=== PATIENT | female | born 1940 | race Asian ===

== ENCOUNTER → 2017-04-06 | Outpatient (CLI) | payer OTHER, BC ==
[~2017-04-06] MED LIST: NORCO 5-325 TA1 EACH PO; ULTRAM 50MG TAB50 MG PO
== END ==
LOC: MRI 08:10
DX: M25.411 Effusion, right shoulder (principal); M65.811 Other synovitis and tenosynovitis, right shoulder

== ENCOUNTER 2017-10-10 05:35 | Inpatient (IN) | payer OTHER, BC ==
[2017-10-01 10:40] LABS: HEMATOCRIT 38.7 % (37.0-47.0); HEMOGLOBIN 13.3 gm/dL (12.0-15.0); MCH 30.4 pg (26.0-34.0); MCHC 34.4 g/dL (28.0-37.0); MCV 88.4 fL (80.0-100.0); RBC 4.38 mil/uL (4.20-5.00); RDW 12.6 % (10.5-14.5); URINE BILIRUBIN NEGATIVE (Negative); URINE BLOOD TRACE (Negative); URINE CLARITY CLEAR; URINE COLOR YELLOW; URINE GLUCOSE-RANDOM* NEGATIVE (Negative); URINE KETONES NEGATIVE (Negative); URINE LEUKOCYTES-REFLEX NEGATIVE (Negative); URINE NITRITE-REFLEX NEGATIVE (Negative); URINE PROTEIN (DIPSTICK) NEGATIVE (Negative); URINE SPECIFIC GRAVITY <= 1.005 (1.005-1.035); URINE UROBILINOGEN 0.2 E.U./dl (0.2-1.0); WBC 5.6 thou/uL (4.0-11.0)
[2017-10-01 10:51] LABS: CALCIUM 9.4 mg/dL (8.5-10.1); CREATININE 0.5 mg/dL (0.6-1.0); POTASSIUM 4.2 mmol/L (3.5-5.1)
[2017-10-01 10:52] LABS: PROTIME 10.3 Seconds (9.3-11.4)
[~2017-10-10] VITALS: Ht 134.6 cm; Wt 36.7 kg
--- NOTE | ~2017-10-10 | O ---
[facility] [place] [place] [address] OPERATIVE REPORT Name: YANETH MCFADDEN Room #: 402-P ADM IN M.R.#: [id number] Admission: 10/17/17 Attend Phys: Herson Schulz Discharge: Date of : 42 Report #: [id number] THIS REPORT FOR: //name// CC: FAM unknown Herson Neal DATE OF SERVICE: 10/17/2017 PREOPERATIVE DIAGNOSES: Right shoulder rotator cuff tear arthropathy, biceps tendinopathy. POSTOPERATIVE DIAGNOSES: Right shoulder rotator cuff tear arthropathy, biceps tendinopathy. PROCEDURE PERFORMED: Right total shoulder arthroplasty with open biceps tenodesis. SURGEON: Herson Neal M.D. CHEF PASSENGER VESSEL: None. ANESTHESIA: General per endotracheal tube by Dr. Judd. FLUIDS: 600 mL crystalloid. ESTIMATED BLOOD LOSS: Approximately 75 mL. IMPLANTS UTILIZED: [employer] Unite stem size 8 with a size 1 centered MCGEE coated modular epiphysis, +3 polyethylene with a standard Metaglene and a 38 eccentric glenosphere, cemented humeral component. DESCRIPTION OF PROCEDURE: After proper identification of the patient and operative site in the preoperative holding area, the operative site was signed by myself. Prophylactic antibiotics were given. The patient elected to consider a postoperative interscalene block, but did not want this performed preoperatively. She had the risks, benefits, alternatives and potential complications of this reviewed with Dr. Judd. The patient was brought back to the operative suite after induction of satisfactory general anesthesia. She was carefully positioned in the beach chair with head of the bed elevated to approximately 40 degrees. The patient's head and neck were very carefully positioned and we matched the position. She felt comfortable and before she had anesthesia induced, the right shoulder was sterilely prepped and draped in the usual manner. Final skin draping was with Ioban. A Kontest limb positioning system was utilized throughout the entire procedure. An anterior deltopectoral approach was planned. Skin was [address] [address] OPERATIVE REPORT Name: YANETH MCFADDEN Suzan Room #: 402-P ADM IN M.R.#: [id number] Admission: 10/17/17 Attend Phys: Herson Schulz Discharge: Date of : 42 Report #: [id number] incised sharply. Full-thickness skin flaps were developed. Cephalic vein was identified and retracted laterally. It was protected throughout the entire procedure. The deltoid was carefully retracted with a Franca deltoid retractor. There was evidence of a massive rotator cuff tear. A small portion of the inferior subscapularis was still noted. This was released and tagged and the long head of the biceps tendon was tenodesed to the undersurface of the pectoralis major tendon. Biceps tendinopathy was present. At this point, the patient had full-thickness bone loss on the more superior aspect of the humeral head and evidence of her prior lateral clavicle fracture was noted with some mobility appreciated here. The acromion was otherwise intact. A small portion of the superior humerus was removed with an oscillating saw to aid an entry for the hand reaming canal reamers. She was reamed up to a size 8 stem, which matched her preoperative templating. Humeral epiphysis was cut in approximately 20 degrees of retroversion using the appropriate cutting guide. Due to her small size, careful positioning of the cutting guide was performed to ensure that this was not resected or had too generous resection. The superior protection plate was applied. The shoulder was then reduced and a lamina residential substance abuse counselor was utilized to distract the joint. The labrum and any remaining superior biceps tendon were removed circumferentially. Inferior capsule was released. The anterior capsule was released off the remaining subscapularis, but the remaining subscapularis was of poor enough quality that this did not appear to have sufficient quality to repair at the end of the procedure. Axillary nerve was identified and protected throughout the entire procedure. There was excellent exposure of the glenoid and using the Metaglene guide for the guidepin, pin was inserted and its position was verified in multiple planes as well as by palpation and then the step drill was utilized. This was contained. The patient had extremely small glenoid and the Metaglene in essence took up a majority of her glenoid, so there was really minimal ability to shift this inferiorly. The Metaglene was impacted into position, had good fit initially. Locking screws were placed superiorly and inferiorly with nonlocking screws in the anterior and posterior plane. All screws had good purchase and they were sequentially tightened. Locking screws were then locked and there was excellent stability of the glenoid. Proximal humerus was reamed with an acetabular reamer to accommodate the epiphysis and the glenosphere was reduced on to the Metaglene. Guidewire was inserted. Screw was rotated counterclockwise until a click was noted and this was felt to be seated. This was then tightened and impacted a total of 3 additional times to ensure that this was fully seated. Glenosphere was rotated inferiorly prior to the tightening and had excellent position and an eccentric 38-mm glenoid was chosen. At this point, a trial implant was placed and a +3 poly provided excellent fit and stability, although she did not have enough proximal fixation or diaphyseal fixation to warrant a press-fit component. Therefore, a cemented component was utilized. A cement restrictor was placed. The canal was irrigated. Two bags of cement were prepared on the back table. This was then injected with a cement gun and the stem was positioned in 10 degrees of retroversion with the epiphysis [facility] [address] [place] [address] OPERATIVE REPORT Name: YANETH MCFADDEN Room #: 402-P ADM IN M.R.#: [id number] Admission: 10/17/17 Attend Phys: Herson Schulz Discharge: Date of : 42 Report #: [id number] relative to the stem. This had excellent purchase. After the insertion, there was a very small crack noted within the anterior humerus. Her epiphyseal/metaphyseal region of the bone was quite thin. This did not extend distally any significant distance and to minimize any further potential risk of more distal spread of this, a Dall-Miles cable was carefully placed. Care was taken to not over tighten this due to the nature of the cortices. The cable was then crimped and cut. There was excellent stability of the implant. A +3 polyethylene was the final polyethylene chosen and this was reduced and stable throughout a full arc of motion. There was no over tensioning of the deltoid or conjoined tendon and she had excellent stability. Wound was thoroughly irrigated with normal saline. Deltopectoral interval was closed with 0 Vicryl after 1 gram of vancomycin powder was utilized, half of this deep half in more superficial; 2-0 Vicryl in the subcutaneous tissues, followed by running 4-0 Monocryl. This was sealed with Dermabond. Sterile dressing was applied after 20 mL of 0.2% Naropin was injected around the skin incision to aid in postoperative pain control. Sling will be utilized postoperatively. She was extubated, awakened and transferred to the recovery room in stable condition. <ELECTRONICALLY SIGNED> By: Herson Neal MD 10/18/17 1225 1001 1033 Herson Neal MD /nt
[2017-10-17] VITALS (8 sets, daily range): BP systolic 96–144; BP diastolic 46–75
[2017-10-18] VITALS (8 sets, daily range): BP systolic 88–123; BP diastolic 50–78
[2017-10-18 06:09] LABS: HEMATOCRIT 33.7 % (37.0-47.0); HEMOGLOBIN 11.4 gm/dL (12.0-15.0)
[2017-10-18 06:16] LABS: POTASSIUM 3.4 mmol/L (3.5-5.1)
[2017-10-19 04:00] LABS: ABSOLUTE NEUTROPHILS 5.4 thou/uL (1.4-8.2); BASOPHILS 0.4 % (0.0-2.0); EOSINOPHILS 0.2 % (0.0-3.0); HEMOGLOBIN 9.8 gm/dL (12.0-15.0); LYMPHOCYTES 13.4 % (24.0-44.0); MCV 88.6 fL (80.0-100.0); MONOCYTES 11.6 % (1.0-8.0); PLATELET COUNT 217 thou/uL (150-400); POLYS 74.4 % (36.0-66.0); RBC 3.16 mil/uL (4.20-5.00); RDW 12.4 % (10.5-14.5); WBC 7.3 thou/uL (4.0-11.0)
[2017-10-19 04:11] LABS: CALCIUM 8.6 mg/dL (8.5-10.1); CREATININE 0.6 mg/dL (0.6-1.0); MAGNESIUM 2.1 mg/dL (1.8-2.4); POTASSIUM 3.4 mmol/L (3.5-5.1)
[2017-10-19 04:54] VITALS: BP 121/58
[2017-10-19 08:00] VITALS: BP 142/79
== END 2017-10-19 11:10 | disposition home or self-care (01) | DRG 483 ==
LOC: PRE 05:35 → 4N 10-17 05:52 → TBA 10-17 05:52 → PRE 10-17 10:23 → 4N 10-17 11:43
PROVIDERS: Nurse Practitioner; Orthopaedic Surgery Sports Medicine
PROC: 0LS30ZZ Reposition Right Upper Arm Tendon, Open Approach (ICD-10-PCS; principal; 2017-10-17)
PROC: 0RRJ0JZ Replacement of Right Shoulder Joint with Synthetic Substitute, Open Approach (ICD-10-PCS; principal; 2017-10-17)
DX: M12.811 Other specific arthropathies, not elsewhere classified, right shoulder (principal); E87.1 Hypo-osmolality and hyponatremia; M75.101 Unspecified rotator cuff tear or rupture of right shoulder, not specified as traumatic; E87.6 Hypokalemia; T40.2X5A Adverse effect of other opioids, initial encounter; Z90.49 Acquired absence of other specified parts of digestive tract; Y92.89 Other specified places as the place of occurrence of the external cause
CPT/HCPCS: 10790; 50010; 50101; 50172; 50386; 50417; 50697; 50733; 50935; 51130; 51225; 51771; 51930; 52138; 53000; 53078; 53371; 54118; 55430; 56524; 56525; 56526; 56530; 57095; 62110; 62900; 70005

== ENCOUNTER 2020-07-07 18:51 | Inpatient (IN) | payer OTHER, BC ==
[~2020-07-07] VITALS: Ht 147.3 cm; Wt 40.4 kg
[2020-07-07 18:54] VITALS: BP 146/73
[2020-07-07 20:45] LABS: URINE BILIRUBIN NEGATIVE (Negative); URINE BLOOD TRACE (Negative); URINE CLARITY CLEAR; URINE COLOR YELLOW; URINE GLUCOSE-RANDOM* NEGATIVE (Negative); URINE KETONES NEGATIVE (Negative); URINE LEUKOCYTES-REFLEX NEGATIVE (Negative); URINE NITRITE-REFLEX NEGATIVE (Negative); URINE PROTEIN (DIPSTICK) NEGATIVE (Negative); URINE UROBILINOGEN 0.2 E.U./dl (0.2-1.0)
[2020-07-07 21:29] LABS: ABSOLUTE NEUTROPHILS 7.3 thou/uL (1.4-8.2); BASOPHILS 0.3 % (0.0-2.0); EOSINOPHILS 0.7 % (0.0-3.0); HEMOGLOBIN 13.3 gm/dL (12.0-15.0); LYMPHOCYTES 8.5 % (24.0-44.0); MCH 30.2 pg (26.0-34.0); MCHC 34.2 g/dL (28.0-37.0); MCV 88.4 fL (80.0-100.0); MONOCYTES 10.6 % (1.0-8.0); PLATELET COUNT 409 thou/uL (150-400); POLYS 79.9 % (36.0-66.0); RBC 4.41 mil/uL (4.20-5.00); RDW 12.1 % (10.5-14.5); WBC 9.1 thou/uL (4.0-11.0)
[2020-07-07 21:39] LABS: CALCIUM 9.5 mg/dL (8.5-10.1); CREATININE 0.6 mg/dL (0.6-1.0); TOTAL BILIRUBIN 0.6 mg/dL (0.2-1.0); TOTAL PROTEIN 6.6 g/dL (6.4-8.2)
[2020-07-07 21:40] LABS: POTASSIUM 2.4 mmol/L (3.5-5.1)
[2020-07-08] VITALS (7 sets, daily range): BP systolic 117–144; BP diastolic 64–78
--- NOTE | 2020-07-08 03:42 | NUR ---
ATTEMPTED TO CALL REPORT AT THIS TIME. I WAS TOLD THAT NURSE WILL HAVE TO CALL ME BACK.
--- NOTE | 2020-07-08 06:00 | NUR ---
PT ARRIVED FROM THE ED AT AROUND 0430 HRS,. PT ALERT AND ORIENTED. PT IS IN SO MUCH PAIN AND DOES NOT WANT ANY PAIN MEDS. PT DID NOT WANT ALL THE EXTRA LINEN REMOVED FROM UNDER HER OR FOR HER TO BE REPOSITIONED DUE TO THE PAIN. SHE IS AFEBRILE. PATEL TO D/D WITH DARK YELLOW URINE.SCDS IN PLACE. IVF INFUSING. ORDERS TO REPLACE K+ THIS AM NOTED.PT OBSERVED TO BE LAYING IN BED IN PAIN BUT SAYS SHE IS OKAY.CALL LIGHT WITHIN REACH.
[2020-07-08 06:08] LABS: INR 1.1; PROTIME 10.9 Seconds (9.3-11.4)
[2020-07-08 06:11] LABS: CALCIUM 9.4 mg/dL (8.5-10.1); CREATININE 0.6 mg/dL (0.6-1.0)
[2020-07-08 06:14] LABS: POTASSIUM 2.8 mmol/L (3.5-5.1)
--- NOTE | 2020-07-08 07:28 | EKG ---
[address] [place] [address] ELECTROCARDIOGRAM REPORT Name: YANETH MCFADDEN Room #: 444-P ADM IN M.R.#: [id number] Admission: 07/07/20 Attend Phys: Frank Oneill MD Discharge: Date of : 42 Report #: [id number] [facility] ED Test Date: 2020-07-07 Test Time: 20:02:54 Pat Name: YANETH MCFADDEN Department: Room: 444 Gender: F Gold Miner: ivet : 1940 Requested By: Cosmo Mixon Order Number: [id number] MD: Bruno Pate Measurements Intervals [place] Rate: 83 P: 46 ND: 166 QRS: 51 QRSD: 78 T: 57 QT: 355 QTc: 418 Interpretive Statements Sinus rhythm Probable left atrial enlargement Low voltage, extremity leads Compared to ECG 05/21/2014 09:26:34 Low QRS voltage now present Electronically Signed On 07-08-2020 7:28:37 VOICE OVER ARTIST by Bruno Pate [email or web address] <ELECTRONICALLY SIGNED> By: Bruno Pate MD, [facility] 07/08/20 0728 01 01 Bruno Pate MD, FACC /EPI
--- NOTE | 2020-07-08 09:41 | NUR ---
ASSESSMENT: CM REVIEWED CHART AND SPOKE WITH PT. PT WAS ADMITTED WITH A LEFT HIP FX AND IS TO GET POSSIBLE LEFT HIP HEMIARTHROPLASTY TODAY IF SCHEDULE ALLOWS. PT REPORTS SHE IS FROM HOME WHERE SHE LIVES IN A HOUSE ALONE. PT REPORTS THAT SHE HAS TWO STEPS TO ENTER WITH NO HANDRAIL AND NO STEPS SHE HAS TO USE ONCE INSIDE. PT REPORTS BEING FULLY INDEPENDENT WITH ADLS AND AMBULATION. PT REPORTS SHE ORDERS ALOT OF THINGS THROUGH [employer] SO SHE DOES NOT HAVE TO GET OUT OF THE HOUSE. PT DENIES HAVING HH IN THE PAST OR BEING TO A SNF. PT REPORTS THAT SHE DOES NOT HAVE ANY CHILDREN. CM DISCUSSED ROLE. [facility] CONSULT IS IN AND SHE IS HOPING SHE WILL BE ABLE TO GO TO ACUTE REHAB. CM WILL CONTINUE TO FOLLOW TO ASSIST NEEDED.
--- NOTE | 2020-07-08 14:15 | NUR ---
Assumed care of pt at 0700. Pt a&ox4. Refuses to take pain medicine for majority of the day. Pt agreeable to take pain medicine. IV pain med administered. Calvert catheter in place. IVF infusing. IV potassium infusing. Pt will have surgery this afternoon. Call light within reach. Fall precautions in place. Will continue to monitor.
--- NOTE | 2020-07-09 03:22 | NUR ---
ASSUMED PT CARE AT 1900.PT C/O PAIN ON HER HIP BUT REF TO TAKE PAIN MED.PT'S POTASSIUM RECHECKED AFTER BEING REPLACED,UP TO 3.9.HS SNACK GIVEN PER PT'S REQUEST.PT SLEEPING ON HER BED AT THIS TIME.CALL LIGHT WITHIN REACH.
[2020-07-09 04:39] VITALS: BP 120/65
[2020-07-09 07:20] VITALS: BP 131/73
[2020-07-09 08:49] LABS: HEMATOCRIT 33.5 % (37.0-47.0); MCHC 33.5 g/dL (28.0-37.0); MCV 89.5 fL (80.0-100.0); RBC 3.75 mil/uL (4.20-5.00); RDW 12.2 % (10.5-14.5); WBC 13.7 thou/uL (4.0-11.0)
[2020-07-09 08:50] LABS: HEMOGLOBIN 11.2 gm/dL (12.0-15.0)
[2020-07-09 09:00] LABS: CALCIUM 8.7 mg/dL (8.5-10.1); CREATININE 0.6 mg/dL (0.6-1.0); MAGNESIUM 1.9 mg/dL (1.8-2.4)
[2020-07-09 09:06] LABS: POTASSIUM 2.8 mmol/L (3.5-5.1)
--- NOTE | 2020-07-09 09:17 | NUR ---
Assess due to borderline low BMI of 18.6. Admit with hip fracture s/p surgical intervention 07/08. Visit this am, tolerated light breakfast. States appetite good at home and always maintains body wt 85-90 lb. Follows vegetarian diet but will eat eggs, cheese and yogurt. Dislikes all nutrition supplement drinks. Assisted ordering lunch for today. Low nutrition risk
--- NOTE | 2020-07-09 09:25 | HC ---
[facility] [place] [address] CONSULTATION Name: YANETH MCFADDEN Room #: 444-P ADM IN M.R.#: [id number] Admission: 07/07/20 Attend Phys: John Hall MD Discharge: Date of : 42 Report #: [id number] THIS REPORT FOR: cc: FAM - No family physician/PCP FAM - No family physician/PCP Chris Herrera MD ~ HISTORY OF PRESENT ILLNESS: This 80-year-old female is quite small and quite frail, but apparently is still moderately active and lives independently. She fell at home injuring the left hip about 3 days ago. She was assisted and tried to manage at home, but with ongoing hip pain. She was then brought to [facility] for x-rays confirm a left femoral neck fracture with displacement. At the time of my evaluation, she is alert and oriented and seems to understand the situation well. She states she has no other significant medical problems and has been safe and independent up to this point. She denies any other areas of injury or discomfort. On examination, she is quite small and frail. She seems to have good alignment of the neck and back without any discomfort in those areas. The upper extremities are also quite frail and small, but she seems to have satisfactory movement at both shoulders without discomfort. The elbow, wrist and hand appear to be normal bilaterally. The pelvis appears to be stable and well aligned. The right lower extremity reveals satisfactory alignment of the hip with good range of motion and only minor crepitus and minimal discomfort. She also has some crepitus and pain at the right knee, but this is mild. The left lower extremity is shortened and rotated consistent with a displaced and unstable proximal femur fracture. X-rays of the pelvis confirm moderate diffuse osteopenia and a complex fracture of the left femoral neck with displacement and significant bony resorption. The right hip demonstrates no fracture, but there is moderate degenerative change. IMPRESSION: Complex comminuted displaced fracture of left femoral neck. I have discussed this with the patient, reviewing treatment options. I think a cemented hemiarthroplasty is most appropriate given this situation. She agrees and would like to proceed with surgery. She has been cleared medically and I think is a safe candidate for surgery. We were planning to proceed with surgery for left hip hemiarthroplasty today on 07/08/2020. <ELECTRONICALLY SIGNED> By: Chris Herrera MD 07/09/20 0925 1715 1846 Chris Herrera MD /nt
--- NOTE | 2020-07-09 09:25 | O ---
[facility] [place] [address] OPERATIVE REPORT Name: YANETH MCFADDEN Room #: 444-P ADM IN M.R.#: [id number] Admission: 07/07/20 Attend Phys: John Hall MD Discharge: Date of : 42 Report #: [id number] THIS REPORT FOR: cc: FAM - No family physician/PCP FAM - No family physician/PCP Chris Herrera MD ~ DATE OF SERVICE: 07/08/2020 PREOPERATIVE DIAGNOSIS: Unstable fracture, left hip femoral neck. POSTOPERATIVE DIAGNOSIS: Unstable fracture, left hip femoral neck. PROCEDURE: Left proximal femoral hemiarthroplasty. SURGEON: Chris Herrera MD INDICATIONS: This very tiny and frail 80-year-old female fell several days ago at home and has experienced hip pain and inability to ambulate since then. X-rays now reveal an unstable displaced femoral neck fracture. 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 No other fractures were identified. We have discussed treatment options and elected to go ahead with cemented hemiarthroplasty. DESCRIPTION OF PROCEDURE: The patient was taken to the operating room where she was placed under general anesthesia. Prophylactic intravenous antibiotics were administered. She was turned to the right lateral decubitus position. The left hip, thigh and leg were meticulously prepped and draped. A slightly curving posterolateral skin incision was made centered over the greater trochanter. This was carried through fascia and gluteus to expose the posterior aspect of the hip joint. The capsule and short external rotators were rather atrophic, but were taken down and preserved. The hip was found to be fractured at the femoral neck with indeterminate age as there was significant bony resorption and comminution. The head was removed and measured at only 40 mm in diameter. The neck was trimmed down to an appropriate level. The acetabulum was inspected. There is mild degenerative change, but I felt it was most reasonable to do a hemiarthroplasty on this patient. The canal was prepared with the Crouch and Nephew broaches and the very smallest cemented stem seemed to be most appropriate. This is a size 9 cement stem. A trial reduction was performed and the hip seemed nicely reduced when using the +0 neck length and a size 40 mm diameter head. The trial component was removed. A cement restrictor was placed in the canal. The permanent components were brought up on to the field. These include a Crouch and Nephew size 9 cement Synergy stem. The size 40 head is smaller than the smallest unipolar head and so I selected a 40 mm modular femoral head using a cobalt chrome style, a +0 neck length sleeve was selected. Methylmethacrylate cement was mixed and injected into the canal. The permanent [facility] [address] [place] [address] OPERATIVE REPORT Name: YANETH MCFADDEN Room #: 444-P [facility] IN M.R.#: [id number] Admission: 07/07/20 Attend Phys: John Hall MD Discharge: Date of : 42 Report #: [id number] stem was then inserted, placing this in about 20 degrees of anteversion. Gentle pressure was applied as excess cement was removed from around its margin. The 40 mm modular head was then impacted on to the Monroe taper. It seated nicely. The hip was very carefully reduced, making sure to avoid any torque or movement with regard to the stem. The hip was then held in neutral position as the cement fully hardened. All excess cement was removed from around the margin, the hip seemed to be stable and well and in good position. Leg length and stability were assessed and felt to be satisfactory. The capsule and short external rotators were repaired back to the greater trochanter using #1 Tevdek sutures, passed through small drill holes in the greater trochanter. The fascia was then closed with multiple #1 Vicryl sutures. The subcutaneous tissues were closed with 0 Monocryl. Skin was closed with skin gideon. Sterile dressing was applied. The patient was awakened and returned to recovery room in good condition. <ELECTRONICALLY SIGNED> By: Chris Herrera MD 07/09/20 0925 1711 1729 Chris Herrera MD /paige
--- NOTE | 2020-07-09 11:49 | NUR ---
Assumed care of pt at 0700. Pt a&ox4. C/o pain but refused pain medicine. Worked with physical therapy. Dressing c/d/i. Critical potassium 2.8 this am. Provider notified. New orders noted. Calvert catheter in place. IVF infusing. Fall precautions in place. Will continue to monitor.
--- NOTE | 2020-07-09 15:25 | NUR ---
ON-GOING ASSESSMENT: PT IS POD1 AND CONTINUING TO WORK WITH PT/OT. [facility] IS EVALUATING BUT NEEDS TO SEE PATIENT WORKING WITH THERAPIES PRIOR TO DETERMINING IF THEY CAN ACCEPT PATIENT. PLANS ARE FOR [facility] VS SNF. CM WILL CONTINUE TO FOLLOW TO ASSIST NEEDED.
[2020-07-09 15:36] VITALS: BP 126/83
[2020-07-09 20:24] VITALS: BP 125/69
--- NOTE | 2020-07-10 04:25 | NUR ---
RECIEVED CARE OF THIS PATIENT AT 1900. PATIENT ALERT AND ORIENTED X4. HAS NANDO DRESSING ON L HIP. DRESSING D/I. PATIENT C/O PAIN BUT REFUSES ANY KIND OF PAIN MED, SAYS IT MAKES HER DIZZY AND SHE MIGHT FALL. PATEL PATENT. IV PATENT IN RFA. SLEPT MOST OF NIGHT.
[2020-07-10 07:30] VITALS: BP 132/75
[2020-07-10 16:30] VITALS: BP 101/62
--- NOTE | 2020-07-11 05:35 | NUR ---
RECIEVED CARE OF THIS PATIENT AT 1900. PATIENT ALERT AND ORIENTED X4. PATEL PATENT. SCD.S ON NATACHA HIP. DRESSING ON L HIP D/I. C/O PAIN, IV MED GIVEN. PATIENT STATES DID NOT HELP. SLEPT LITTLE THIS SHIFT.
[2020-07-11 07:23] VITALS: BP 118/61
[2020-07-11 17:10] VITALS: BP 128/69
[2020-07-11 19:10] VITALS: BP 104/48
--- NOTE | 2020-07-12 04:00 | NUR ---
PT WITH NANDO DRSG INTACT TO LEFT HIP. HIP IS TENDER. PT FEELS THE PAIN IS ALOT WORSE AFTER SHE WORKRD WITH PT AND TRANSFERRED BACK TO BED. FENTANYL GIVEN X 2.DENIES NAUSEA AND VOMITING.AFEBRILE. IVF INFUSING. CALL LIGHT WITHIN REACH.
[2020-07-12 04:14] VITALS: BP 136/66
[2020-07-12 09:48] LABS: MCH 31.3 pg (26.0-34.0); MCHC 34.5 g/dL (28.0-37.0); MCV 90.8 fL (80.0-100.0); RBC 3.52 mil/uL (4.20-5.00); RDW 12.3 % (10.5-14.5); WBC 9.4 thou/uL (4.0-11.0)
[2020-07-12 10:00] LABS: CALCIUM 8.6 mg/dL (8.5-10.1); CREATININE 0.4 mg/dL (0.6-1.0); MAGNESIUM 1.8 mg/dL (1.8-2.4); POTASSIUM 4.2 mmol/L (3.5-5.1)
--- NOTE | 2020-07-12 14:44 | NUR ---
INFORMATION RECEIVED FROM JAVA ENGINEER THAT PATIENT IS NOW VERY INTERESTED IN COMING TO [facility] FOR REHAB. LIAISON SPOKE WITH PATIENT SHARING A BROCHURE WITH INFORMATION/EXPECTATIONS OF [facility] REHAB. PATIENT EXPRESSED STRONG DESIRE TO COME TO REHAB. PATIENT INSTRUCTED TO MAKE SURE THAT SHE PARTICIPATES IN REHAB THIS AFTERNOON AND TOMORROW MORNING AND THEN REHAB WOULD BE ABLE TO GIVE DETERMINATION TO HER IF SHE WOULD BE ABLE TO ADMIT/WAS APPROPRIATE FOR ACUTE REHAB SERVICES. JAVA ENGINEER INFORMED OF ABOVE.
--- NOTE | 2020-07-12 15:36 | NUR ---
CM MET WITH PT AT BEDSIDE AND INDICATED THAT CARE TEAM WERE RECOMMENDING SKILLED POST ACUTE CARE STAY. PT SAID YES UPSTAIRS. CM INDICATED THAT NO [facility] SAID PT WASN'T A GOOD CANDIDATE AND OFFERED SNF LIST. PT INDICATED SHE WANTED TO GO TO [facility]. CM SPOKE WITH LIAISON AND SHE MET WITH PT AND DISCUSSED THAT PT NEEDS TO PARTICIAPTE WITH THERAPY AND SHOW SHE WILL WORK WITH THERAPY IF BROUGHT TO [facility]. PT AND OT TO SEE AGAIN TOMORROW. CM FOLLOWING.
[2020-07-12 17:00] VITALS: BP 123/67
[2020-07-12 19:00] VITALS: BP 125/51
--- NOTE | 2020-07-13 01:30 | NUR ---
ASSUMED PT CARE AT SHIFT CHANGE. PT IS A&OX4. PT HAS A LEFT AC THAT WAS LEAKING AT THE BEGINING OF THE SHIFT. CELINE (DAY RN) PLACED AND IV IN THE PT'S LEFT FOREARM. IV IS PATENT. VISIBLY I CAN SEE THAT THE PT IS IN PAIN BUT SHE REFUSES ANY PAIN MEDICATION. PT STATES THAT SHE WANTS THE SCD'S TURNED ON AND THAT WILL HELP HER GET TO SLEEP. PT HAS DRIED BLOOD ON THE DRESSING ON HER LEFT HIP. PT REQUESTS TO HAVE HER LIDOCAINE PATCH PUT ON 07/13/20 AT 0700 HOURLY ROUNDING DONE. WILL CONTINUE TO MONITOR.
[2020-07-13 07:15] VITALS: BP 117/57
[2020-07-13] MEDS ORDERED: ENOXAPARIN40 MG/0.1 SUBQ (13:30)
[2020-07-13] MEDS ORDERED: TYLENOL325 MG PO (13:30)
[2020-07-13] MEDS ORDERED: ULTRAM 50MG TAB50 MG PO (13:30)
[2020-07-13] MEDS ORDERED: PEPCID20 MG PO (13:30)
[2020-07-13] MEDS ORDERED: LIDOPATCH1 EACH TRANSDERM (13:30)
--- NOTE | 2020-07-13 16:04 | NUR ---
CARE TEAM INDICATED THAT PT IS MEDICALLY STABLE TO DISCHARGE THIS DAY. [facility] INDICATED THAT THEY ARE ABLE TO ACCEPT PT FOR ADMISSION. PT IS TO DC TO [facility] ACUTE INPATIENT REHAB THIS DAY. REPORT TO BE CALLED TO . NO OTHER CM INTERVENTION INDICATED. CASE CLOSED.
[2020-07-13 16:35] VITALS: BP 105/59
--- NOTE | 2020-07-13 16:45 | NUR ---
Central supply called for Hans pino, was told there was only size that was too big for the patient. Patient still has the orozco catheter on although the surgery date was July 08; according to the shift report this morning, the reason that the patient kept the orozco catheter was " immobile". The [facility] who talked to the staff for general view of the patient asked the staff to send the patient to with the orozco catheter on and they would contact the doctor to figure out if the patient would keep the catheter or not.
== END 2020-07-13 18:31 | DRG 522 ==
LOC: ER 18:51 → 4S 20:50 → EROBS 20:50 → 4S 07-08 04:21
PROVIDERS: Emergency Medicine; Nurse Practitioner Family; ADMIT Internal Medicine; ATTEND Internal Medicine
PROC: 0SRS019 Replacement of Left Hip Joint, Femoral Surface with Metal Synthetic Substitute, Cemented, Open Approach (ICD-10-PCS; principal; 2020-07-07)
DX: S72.012A Unspecified intracapsular fracture of left femur, initial encounter for closed fracture (principal); D62 Acute posthemorrhagic anemia; R53.81 Other malaise; E87.6 Hypokalemia; M81.0 Age-related osteoporosis without current pathological fracture; E53.8 Deficiency of other specified B group vitamins; E55.9 Vitamin D deficiency, unspecified; W18.39XA Other fall on same level, initial encounter; Z20.822 Contact with and (suspected) exposure to COVID-19; Z90.49 Acquired absence of other specified parts of digestive tract; Y93.89 Activity, other specified; Y92.89 Other specified places as the place of occurrence of the external cause; Y99.8 Other external cause status
CPT/HCPCS: 10195; 50010; 50101; 50382; 50414; 51057; 51130; 51225; 51412; 53000; 53369; 56521; 56525; 56530; 57103; 62110; 62900; 70005

== ENCOUNTER 2020-07-13 12:03 | Inpatient (IN) | payer OTHER, BC ==
[~2020-07-13] VITALS: Ht 147.3 cm; Wt 38.9 kg
[2020-07-13] MEDS ORDERED: ENOXAPARIN40 MG/0.1 SUBQ (13:30)
[2020-07-13] MEDS ORDERED: PEPCID20 MG PO (13:30)
[2020-07-13] MEDS ORDERED: LIDOPATCH1 EACH TRANSDERM (13:30)
[2020-07-13] MEDS ORDERED: ULTRAM 50MG TAB50 MG PO (13:30)
[2020-07-13] MEDS ORDERED: TYLENOL325 MG PO (13:30)
[2020-07-13 18:51] VITALS: BP 103/54
[2020-07-13 20:25] VITALS: BP 101/52
--- NOTE | 2020-07-14 01:20 | NUR ---
PT ARRIVED TO ROOM 515 AROUND 1830 LAST EVENING. PT ALERT AND ORIENTED X 4. LEFT HIP NANDO DRESSING INTACT WITH MOD AMT DRIED GREEN DRAINAGE NOTED. PATEL PATENT DRAINING CLEAR YELLOW URINE. PT DENIES PAIN OR DISCOMFORT. HS SCHEDULED TYLENOL GIVEN. PT REFUSED LOVENOX AT HS. POINTED TO SCD'S AND STATED THEY WERE MOVING HER LEGS SO SHE DIDN'T NEED LOVENOX. EDUCATION PROVIDED. PT REFUSING TO BE TURNED. NO SKIN ISSUES NOTED. PT ORIENTED TO ROOM AND USE OF CALL LIGHT. UNIT HANDBOOK GIVEN TO PT. BED ALARM ON FOR SAFETY. PT APPEARS TO BE SLEEPING ON HOURLY ROUNDS.
[2020-07-14 07:02] LABS: HEMATOCRIT 28.1 % (37.0-47.0); HEMOGLOBIN 9.4 gm/dL (12.0-15.0); MCH 30.3 pg (26.0-34.0); MCHC 33.6 g/dL (28.0-37.0); MCV 90.2 fL (80.0-100.0); RBC 3.11 mil/uL (4.20-5.00); RDW 12.4 % (10.5-14.5)
[2020-07-14 07:10] LABS: CALCIUM 8.6 mg/dL (8.5-10.1); CREATININE 0.4 mg/dL (0.6-1.0); POTASSIUM 3.6 mmol/L (3.5-5.1)
[2020-07-14 07:20] VITALS: BP 119/71
--- NOTE | 2020-07-14 11:59 | NUR ---
Nutrition: RD received consult stating poor intake. Pt admitted to rehab unit S/P surgery for left femoral neck fracture post fall. Has low BMI 17.9. UBW ranges from 85-90#. Current 85#. Follows vegetarian diet but will eat eggs, cheese, yogurt, etc. Pt orders meals. Food preferences entered. Will not drink supplements but eats 100% of meals and noted pt ordered eggs and cottage cheese at lunch for protein sources. On B12 and vitamin D supplementation. Low nutrition risk.
--- NOTE | 2020-07-14 12:14 | NUR ---
Case opened to follow for dc planning. The pt has been admitted to acute inpt rehab. During our visit this morning she is A&Ox4 and cm role/team conf/dc planning introduced. The pt reports that she is a and lives alone in her family home that was built and designed by her . She does not have any children and no extended family locally. She has a close friend/neighbor of many years, Reina Emery that is her emergency contact and support person. She states that Reina can take care of anything she needs or handle any emergencies. She has two steps to enter her ranch style home and she lives on the main level (including laundry);therefore can avoid the basement. She said the basement only gets used if she has visitors from out of town. She has no dme and will need a FWW at [facility]. She is open to HH f/u at [facility] with no preference. Pcp is Dr. Mari Umanzor but she has not seen her recently. She reports being healthy and independent with no real medical issues. She is a vegitarian and the cosmetic sales consultant has visited with her. She is motivated and wanting to get stronger to return home. Team conf next Thursday 07/20 to determine ELOS.
--- NOTE | 2020-07-14 14:47 | NUR ---
ASSUMED CARE AT 0700. PATIENT IS ALERT AND ORIENTED X4. PATIENT MARTINEZ'S, TRIAL JUDGE ARE EQUAL. LUNGS ARE CLEAR. ABD IS SOFT WITH BSX4. PATIENT HAS PATEL TO DD, DRAINING DANK COLORED URINE. UP IN BED FOR MEALS. PICCO DRESSING INTACT WITH PUMP ON. PATIENT HAS BILATERAL S.L. IN BOTH ARMS. FALL AND SAFETY PROTOCOLS IN PLACE. C/O LEFT HIP PAIN. MEDICATED WITH SCED PAIN MED. PATIENT CONTINUES TO PROGRESS TOWARDS D/C GOALS. WILL CONTINUE TO MONITER.
[2020-07-14 20:00] VITALS: BP 118/60
--- NOTE | 2020-07-15 02:30 | NUR ---
ASSUMED CARE APPROX 1900 EVENING 07/14. PT LYING IN BED WITH HEAD OF BED ELEVATED DOZING OFF AND ON. PATEL TO DD WITH YELLOW URINE TO BAG. PT TOOK HS MEDS WITH APPLESAUCE TOLERATING WELL. BED ALARM ON AND CALL LIGHT IN REACH. WILL CONTINUE TO MONITOR.
--- NOTE | 2020-07-15 09:49 | NUR ---
Dr. Umanzor's nurse,Genoveva called back and they can follow her for HH at [facility]. She has not been seen by them since 2017 so she will need an appt setup upon dc from Rehab. They would also like an updated faxed and dc summary faxed to them at [facility] as well. Dc data processing systems project planner to fax updated today.
--- NOTE | 2020-07-15 15:00 | NUR ---
ASSUMED CARE AT 0700. SLEPT FAIRLY WELL. ALERT AND ORIENTATED. PAIN IS STABLE AND CONTROLLED WITH REBECCA TYLENOL. APPETITE FAIRLY GOOD. HAD COUPLE OF BM TODAY. IV LINE REMOVED. PATEL IN PLACE, ORDERS RECEIVED TO BLADDER TRAINING AND POSSIBLY PATEL REMOVED TOMORROW. HAS BEEN REFUSING LOVENOX, EDUCATION GIVEN AND PT VERBALIZES UNDERSTANDING AND PREFER TO USE THE SCD INSTEAD. L HIP DRESSING INTACT WITH SS OLD DRAINAGE. PARTICIPATED WITH THERAPY. CONT TO MONITOR.
[2020-07-15 20:43] VITALS: BP 118/71
--- NOTE | 2020-07-16 02:15 | NUR ---
PAIN MANAGED WELL WITH SCHEDULED TYLENOL AND LIDODERM PATCH TO LEFT THIGH ON DURING DAY. REFUSED LOVENOX, PREFERS SCDs TO PREVENT DVT. COVERING FACE IN ORDER TO DARKEN FOR SLEEP. TOLERATING AND KEEPING TRACK OF PATEL CLAMPING, KNOWS THAT IT MIGHT COME OUT SOON THIS MORNING. PLEASANT
[2020-07-16 07:51] VITALS: BP 108/62
--- NOTE | 2020-07-16 15:46 | NUR ---
ASSUMED CARE AT 0700. SLEPT FAIRLY WELL. ALERT AND ORIENTATED. PT REFUSED TO SIT AND EAT HER MEALS UNTIL HER CATHETER IS REMOVED. BLADDER TRAINING DONE WITH CLAMPING Q4 HR YESTERDAY. PATEL REMOVED TODAY AT 1015, PT ABLE TO VOID AFTER AN HOUR LATER. MEDICATED WITH REBECCA TYELENOL WITH MANAGEABLE CONTROL. APPETITE FAIRLY GOOD. HAD A BM TODAY. PARTICIPATING IN THERAPY. CONT TO MONITOR.
[2020-07-16 20:17] VITALS: BP 121/59
--- NOTE | 2020-07-17 02:18 | NUR ---
PT ASSESSMENT COMPLETED AND VSS. MEDS GIVEN ORDERED AND WELL TOLERATED. PRN PAIN MEDICATION GIVEN FOR LEFT HIP PAIN. DSG INTACT WITH DRY DRAINAGE. SURGERY CONTACTED DURING THE DAY REGARDING NANDO DRSG PUMP TURNING OFF AND THAT THERE WAS DRY DRAINAGE ON THE DRESSING. TOLD DAY RN TO KEEP DRESSING ON AND JUST CUT THE BOX OFF. COMPLETED BY DAY RN. DSG ON LEFT HIP REMAINS INTACT AT THIS TIME. PT VOIDING LARGE AMOUNT SINCE APTEL OUT TODAY. INC OF URINE ONE TIME WHEN PT WAS GETTING UP TO THE BSC. BED CHANGE COMPLETED. AND PT WAS ABLE TO VOID A LARGE AMOUNT ON THE BSC AFTER HER INC EPISODE. FALL PRECAUTIONS IN PLACE. SLEEPING WELL AT THIS TIME. WILL CONTINUE TO MONITOR FREQUENTLY.
[2020-07-17 08:00] VITALS: BP 90/49
--- NOTE | 2020-07-17 12:39 | NUR ---
ASSUMED CARE OF PT. AT 0700 TODAY. PT. IN BED, WOULD NOT GET UP "UNTIL SHE HAD MY PAIN MEDICATION". 0900 MEDICATIONS GIVEN. LIDOCAINE PATCH APPLIED TO LEFT LEG. AFTER THERAPY SHE RETURNED TO BED. SHE WOULD NOT GET UP FOR LUNCH. SHE STATED, "I JUST WON'T GET UP THEN!" SHE REFUSED TO WORK WITH AFTERNOON THERAPIES STATING SHE WAS IN TOO MUCH PAIN. PAIN MEDICATION OFFERED TO HER. SHE REFUSED STATING IT MAKES HER DIZZY AND SHE DOES NOT WANT ANY.
[2020-07-17 20:00] VITALS: BP 108/56
--- NOTE | 2020-07-18 04:15 | NUR ---
assumed care approx 1900 evening 07/17. pt sleeping in bed at change of shift. pt refused Lovenox at hs. pt up to bathroom to void several times this night. pt appears to be sleeping soundly with hourly rounding checks. bed alarm on and call light in reach. will continue to monitor.
[2020-07-18 07:28] VITALS: BP 115/70
--- NOTE | 2020-07-18 13:34 | NUR ---
ASSUMED CARE AT 0700. SLEPT FAIRLY WELL. PAIN IS MANAGEABLE AND STABLE WITH TYLENOL. PT HAS BEEN OFFERED TRAMADOL FOR BETTER CONTROL KELBY WITH MOVEMENT. PT SIT FOR A SHORT WHILE IN THE WC ONLY TO EAT HER MEALS AND PREFERS TO LIE BACK AFTER SHE IS DONE. SHE MOANS WITH MOVEMENT AND STILL DOES NOT WANT HER TRAMADOL SHE SAYS HER PAIN IS STABLE WITH REST. APPETITE IS FAIR. HAD A BM TODAY. PARTICIPATED WITH PHY THERAPY TODAY. WILL CONT TO MONITOR.
[2020-07-18 19:56] VITALS: BP 121/72
--- NOTE | 2020-07-19 02:40 | NUR ---
assumed care approx 1900 evening 07/18. pt lying in bed sleeping at change of shift. pt refused hs meds. pt up to bsc to void with 1 assist. bed alarm on and call light in reach. will continue to monitor.
[2020-07-19 08:41] VITALS: BP 107/59
--- NOTE | 2020-07-19 15:00 | NUR ---
ASSUMED CARE AT 0700. SLEPT FAIRLY WELL. PAIN IS STABLE WITH TYLENOL BUT DID REPORT PAIN IS MORE WITH ACTIVITY. XRAY DONE TO L HIP, NO ACUTE FINDINGS. PT OFFERED TO TAKE TRAMADOL WITH INC PAIN BUT PT WANTS TO STAY WITH TYLENOL FOR NOW. SURGICAL DRESSING INTACT WITH OLD DRAINAGE WITH CORD CUT. APPETITE FAIR. HAD A BM TODAY. PARTICIPATES WITH THERAPIES MUCH TOLERATED. CONTINENCE WITH BLADDER AND BOWELS. TOLERATES HER MEDS, TAKES HER TYELENOL WITH YOGURT.
[2020-07-19 19:30] VITALS: BP 130/62
--- NOTE | 2020-07-20 04:51 | NUR ---
RECIEVED CARE OF THIS PATIENT AT 1900. PATIENT ALERT AND ORIENTED X4. GETS UP TO BSC WITH ASSIST OF ONE, GAIT BELT AND WALKER. DRESSING ON L HIP IS INTACT. HAS SOME DRY DRAINAGE. SCD'S ON. DENIES PAIN. SLEPT MOST OF THE NIGHT.
[2020-07-20 08:05] VITALS: BP 123/79
--- NOTE | 2020-07-20 12:39 | NUR ---
team meeting, reccomendation: de 07/28 with fww and home health ( nursing, pt and ot). has support from friend. she plans on haveing food delivered to home. will need transport home and help getting into home at de on 07/28.
--- NOTE | 2020-07-20 16:30 | NUR ---
ASSUMED CARE AT 0700 THIS MORNING. SHE IS PLEASANT AND COOPERATIVE WITH STAFF. SHE HAS BEEN WORKING WITH THERAPIES TODAY. SHE IS ALERT AND ORIENTED TIMES 4. SHE ANSWERS ALL QUESTIONS APPROPRIATELY. SHE MAKES FEW REQUESTS OF STAFF. SHE TOOK ALL HER MEDICATIONS IN [facility]OGURT.
[2020-07-20 19:55] VITALS: BP 122/64
--- NOTE | 2020-07-21 02:14 | NUR ---
ASSESSED AT START OF SHIFT. PT UP WITH SBA TO THE BSC. TYLENOL GIVEN FOR LEFT HIP PAIN. PT TAKES MEDS WITH YOGURT ONE AT A TIME. ON RA. NANDO DRESSING ON LEFT HIP NOTED. FALL PREC IN PLACE AND PT CALLS APPROPRIATELY FOR NEEDS. WILL CONT TO MONITOR.
[2020-07-21 06:03] LABS: ALBUMIN 2.4 g/dL (3.4-5.0); CALCIUM 8.9 mg/dL (8.5-10.1); CREATININE 0.6 mg/dL (0.6-1.0); MAGNESIUM 2.3 mg/dL (1.8-2.4); PHOSPHORUS 3.9 mg/dL (2.6-4.7); POTASSIUM 4.1 mmol/L (3.5-5.1)
[2020-07-21 06:11] LABS: ABSOLUTE NEUTROPHILS 4.8 thou/uL (1.4-8.2); BASOPHILS 0.3 % (0.0-2.0); EOSINOPHILS 3.5 % (0.0-3.0); HEMATOCRIT 31.7 % (37.0-47.0); HEMOGLOBIN 10.6 gm/dL (12.0-15.0); LYMPHOCYTES 11.1 % (24.0-44.0); MCH 30.8 pg (26.0-34.0); MCHC 33.4 g/dL (28.0-37.0); MCV 92.1 fL (80.0-100.0); MONOCYTES 7.5 % (1.0-8.0); PLATELET COUNT 539 thou/uL (150-400); POLYS 77.6 % (36.0-66.0); RBC 3.44 mil/uL (4.20-5.00); RDW 13.4 % (10.5-14.5); WBC 6.2 thou/uL (4.0-11.0)
[2020-07-21 08:39] VITALS: BP 115/69
--- NOTE | 2020-07-21 12:45 | NUR ---
Nutrition followup: pt continues on rehab unit S/P surgery for left femoral neck fracture post fall. Low body weights with UBW range 85-90#. Current 85#. No new weight since 07/13. BM 07/20. Pt continues to eat well on average 70% of meals past several days. Orders meals due to vegetarian diet. Uses eggs, cottage cheese, cheese, yogurt, peanut butter as protein sources. Continues on vitamin D and B12 supplementation. REC obtain new weight. Low nutrition risk.
--- NOTE | 2020-07-21 13:44 | NUR ---
FAXED REFERRAL TO [facility] HH SPOKE WITH ROBYN IN INTAKE SHE CAN ACCEPT AT DC 07/28.
[2020-07-21 13:45] VITALS: BP 115/69
--- NOTE | 2020-07-21 17:10 | NUR ---
PT ALERT AND ORIENTED TIMES FOUR WITH SOMEWHAT BLUNTED AFFECT. VSS. PT C/O PAIN TO LEFT HIP PAIN PATCH APPLIED. PT TOLERATES MEDS AND MEALS. PT WORKED WELL WITH PT/OT TODAY AND WAS WALKING IN THE HALLWAY. PT PROGRSSING HIMANSHU POC GOALS.
[2020-07-21 20:15] VITALS: BP 116/71
--- NOTE | 2020-07-22 04:39 | NUR ---
2-09-05 CARE TRANSFERRED 1899. PT AAOX4, VSS, RR EVEN AND NONLABORED ON RA. PT NANDO LEFT HIP DRY AND INTACT, OLD BLOOD NOTED AND REPORTED BY OFF GOING RN DURING SHIFT REPORT. PT IS PLEASANT, CALM AND COOPERATIVE, AND DETERMINED TO BE SELF SUFFICIENT, NOTED GAVE STAND BY ASSIST WITH MULTI VOIDS AND [facility] BM FORMED, NO INTERVENTION WAS NEED, BUT THIS SKI TECHNICIAN. ZERO S/S OF ACUTE DISTRESS, PT WILL CONTINUE TO BE MONITOR.
[2020-07-22 08:00] VITALS: BP 116/69
--- NOTE | 2020-07-22 16:28 | NUR ---
assumed care of pt at 0700. pt alert and oriented in no acute distress. denies need for analgesics other than tylenol. gideon removed per ortho instruction - steri strips applied to incision site. pt calls out appropriately. voicing no particular concerns at this time. wcm.
--- NOTE | 2020-07-22 16:31 | NUR ---
[facility] will deliver fww prior to dc on .
[2020-07-22 20:09] VITALS: BP 113/66
--- NOTE | 2020-07-23 00:22 | NUR ---
PT ASSESSMENT COMPLETED AND VSS. PRN PAIN MEDICATION GIVEN PER PT REQUEST. UP TO THE BSC WITH ASST/GAIT/WALKER. VOIDING MODERATE AMOUNT OF YELLOW URINE. LEFT HIP INCISION OPEN TO AIR WITH STERI STRIPS - DRY AND INTACT. SLEEPING WELL. WILL CONTIUE TO MONITOR FREQUENTLY.
[2020-07-23 08:00] VITALS: BP 97/51
--- NOTE | 2020-07-23 16:08 | NUR ---
PATIENT IS ALERT, AND ORIENTED X 3-4 ABLE TO VOICE NEED. SHE IS CALM, COOPERATIVE WITH CARE. PATIENT TOOK ALL MEDICATION WHOLE IN YOGURT WITHOUT DIFFICULTY. PATIENT IS EATING MEALS, AND DRINKING FLUID FAIRLY WELL. LCTA, RESP EVEN/UNLABORED, NO SOA/CYANOSIS NOTED. BS+X4, ABD SOFT, NON-TENDER TO TOUCH. THERAPY WORKING WITH PATIENT, SHE TOLERATES IT WELL. PATIENT REPORTS HAD LARGE FORMED BOWEL MOVEMENT THIS MORNING. PATIENT REMAIN ON WEIGHT BEARING TOLERATED. STERI STRIP INTACT TO SURGICAL AREA TO LEFT HIP. PATIENT CURRENTLY IN BED RESTING, NO SIGN OF ACUTE DISTRESS NOTED, CALL LIGHT IN REACH, ALL FALL PRECAUTIONS IN PLACE, WILL MONITOR FOR SAFETY.
--- NOTE | 2020-07-23 16:33 | PLAN ---
[facility] [place] [address] REHAB UNIT PLAN OF CARE Name: YANETH MCFADDEN Room #: 515-P ADM IN M.R.#: [id number] Admission: 07/13/20 Attend Phys: Chris Daniel MD Discharge: Date of : 44 Report #: [id number] THIS REPORT FOR: cc: FAM - No family physician/PCP FAM - No family physician/PCP Chris Daniel MD ~ DATE OF SERVICE: 07/14/2020 PROGRESS NOTE/OVERALL PLAN OF CARE SUBJECTIVE: The patient was seen today on the inpatient rehab [place]. She is alert, pleasant, in no distress. Temperature 36.6, pulse 96, respirations 18, blood pressure 119/71. She is very small-statured, pleasant. She is 4 feet 10 inches and weighs 85.8 pounds. Left hip dressing is in place. No focal calf swelling. She is working on functional mobility skills with min assist; sit to stand, supine to sit is mod assist. She did ambulate 6-7 feet with min assist with a front-wheeled walker. Using Tylenol for pain. She does not like to use any type of pain medications. Toilet transfers are min assist. Mod assist with bed mobility. Upper body dressing is min assist. ASSESSMENT: 1. Left femoral neck fracture, status post hemiarthroplasty, 07/08/2020. Weightbearing as tolerated. 2. Previous critical hypokalemia. This has improved. Potassium this morning 3.6. 3. Hyponatremia was 132, improved to 138. 4. Acute blood loss anemia. Hemoglobin this morning 9.4. 5. Mild leukocytosis. 6. Monitoring for orthostatic blood pressure. DEDE hose were added bilaterally. PLAN: The overall plan of care is based on the preadmission screen and information garnered from therapy assessments. 1. Estimated length of stay is probably at least 2 weeks. 2. Medical prognosis is reasonably good. 3. Anticipated interventions includes the interdisciplinary acute inpatient rehabilitation program. 4. Anticipated functional outcomes would be for the patient to become modified independent with transfers, mobility, ADLs, so that she can hopefully return back to her prior living situation. 5. Discharge destination is back to the home setting. She does live alone, but has a neighbor/friend that can assist. 6. Expected therapy by discipline includes PT and OT 1-1/2 hours per day each five days a week throughout the duration of the acute inpatient rehabilitation stay. [address] [address] REHAB UNIT PLAN OF CARE Name: YANETH MCFADDEN Suzan Room #: 515-P [facility] IN .R.#: [id number] Admission: 07/13/20 Attend Phys: Chris Daniel MD Discharge: Date of : 42 Report #: [id number] The patient's prognosis for significant practical improvement within a reasonable period of time appears good. Given the patient's complex medical condition and risk of further medical complication, rehabilitation services could not be safely provided at the lower level of care such as a shelter facility. <ELECTRONICALLY SIGNED> By: Chris Daniel MD 07/23/20 1633 [id number] [id number] Chris Daniel MD /[facility]
[2020-07-23 20:00] VITALS: BP 106/62
[2020-07-24 08:00] VITALS: BP 114/71
--- NOTE | 2020-07-24 11:36 | NUR ---
PT ALERT AND ORIENTED TIMES FOUR. VSS. SCHEDULED PAIN MEDICATIONS CONTROLLING PAIN WELL. PT TOLERATES MEDS AND MEALS. PT WORKED WELL WITH PT/OT TODAY. PT PROGRESSING TOWRADS POC GOALS. WILL CONTINUE TO MONITOR.
[2020-07-24 19:50] VITALS: BP 127/73
[2020-07-25 08:12] VITALS: BP 160/77
--- NOTE | 2020-07-25 13:33 | HC ---
[facility] [place] [address] CONSULTATION Name: YANETH MCFADDEN Room #: 515-P [facility] IN M.R.#: [id number] Admission: 07/13/20 Attend Phys: Chrsi Daniel MD Discharge: Date of : 42 Report #: [id number] THIS REPORT FOR: cc: CARLOS - Zamzam family physician/PCP CARLOS - No family physician/PCP Darnell Leung PhD ~ DATE OF SERVICE: 07/17/2020 NEUROBEHAVIORAL STATUS EXAM ATTENDING PHYSICIAN: Chris Daniel MD HAND [employer]ING FORMER: Darnell Leung, PhD CLINICAL PRESENTATION: The patient is a 80-year-old female admitted to the rehabilitation unit at [facility] following a fractured hip. She was admitted to the hospital on 07/07/2020 after a fall at her home and was diagnosed with a left displaced femoral neck fracture. She underwent a left hemiarthroplasty on 07/08/2020. Her assessment on admission to the rehab unit is left femoral neck fracture, status post hemiarthroplasty, critical hypokalemia, acute blood loss anemia, mild leukocytosis and a fall. A complete description of her medical condition and history along with medications can be found in her medical record. Neuropsychological consultation was requested to provide assistance in the assessment of cognitive and emotional status and to provide recommendations and services. Prior to this most recent admission, she was living independently in her own home. 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 Pre-morbid functioning was likely very high. Her is . She has no children. There is no history of treatment for anxiety/depression or mental or substance abuse. TECHNIQUES UTILIZED: Clinical interview, review of medical records, staff consultation and behavioral observation, mini mental status exam 2 standard version and clock drawing. EXAMINATION FINDINGS: The patient was alert and cooperative with the assessment. She accurately described the reason for her hospitalization. There is no evidence of aphasia. Her thoughts are logical and goal oriented. There is no evidence of thought disorder. She does not report auditory or visual hallucinations. She does not report difficulty with memory, word finding, sleep, appetite or [facility] [address] [place] [address] CONSULTATION Name: YANETH MCFADDEN Suzan Room #: 515-P [facility] IN ..#: [id number] Admission: 07/13/20 Attend Phys: Chris Daniel MD Discharge: Date of : 42 Report #: [id number] energy level. She is frustrated with her limitations in functioning that are placed on her as the patient. She has been awakened during sleep to be given Tylenol, which she has been preferred to have slept through. Her performance on the MMSE 2 brief version suggests mild impairment. She was 2/3 for immediate registration, 5/5 for orientation to time and place. She was 1/3 for immediate recall of 3 items after a brief time delay. Her score was of 13 or 16, which is a T score of 35 and percentile rank of 7. Performance on the MMSE 2 standard version was in the mild range of impairment with a raw score of 25-30, which is a T score of 39 and percentile rank of 14. She was 4/5 for serial sevens, 2/2 for naming, 1/1 for repetition, 3/3 for auditory comprehension. She could read and follow a single command and write a sentence. She had some difficulty with copying a simple geometric design. Clock drawing within normal limits. While alert and oriented, she does appear to be having some difficulty with sustained concentration and some mild visual spatial deficits. 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 RECOMMENDATIONS: The patient may benefit from a followup neuro-psych assessment if cognitive issues persist following discharge. She has been independent with all activities of daily living and is without social support. Thank you very much for allowing me to provide the consultation on this patient. <ELECTRONICALLY SIGNED> By: Darnell Leung, PhD 07/25/20 1333 25 Darnell Leung, PhD /nt
--- NOTE | 2020-07-25 17:45 | NUR ---
PT UP AT BEDSIDE FOR MEALS AND OOB FOR TOILETING, OTHERWISE REFUSED DRESSING AND BATHING TODAY, STATING THAT SHE WANTED TO REST. NO C/O PAIN, AND RESTING THIS EVENING IN THE BED WITH NO CONCERNS.
[2020-07-25 20:31] VITALS: BP 131/76
--- NOTE | 2020-07-26 01:32 | NUR ---
PT ASSESSMENT COMPLETED AND VSS. MEDS GIVEN ORDERED AND WELL TOLERATED. FALL PRECAUTIONS IN PLACE. UP TO THE [facility] STANDBY ASST. STEADY. PT ABLE TO MANAGE HER OWN CLOTHING AND UNDERWEAR. CONTINENT. VOIDING MODERATE AMOUNT OF YELLOW URINE. STERI STRIPS TO LEFT HIP DRY AND INTACT. SLEEPING WELL. WILL CONTINUE TO MONITOR FREQUENTLY.
[2020-07-26 08:00] VITALS: BP 111/72; BP 133/71
--- NOTE | 2020-07-26 17:18 | NUR ---
ASSUMED CARE AT CHANGE OF SHIFT. ALERTX3, ABLE TO CALL FOR ASSISTANCE. ASSISTANCE LEVEL CHANGED TO MOD-I. PT SELF TRANSFER TO COMMODE. SMALL BM TODAY. TAKES PO PILLS WITH YUGURT. LEFT HIP PAIN MANAGE WITH SCHEDULED TYLENOL STERRI STIPS REMAIN IN PLACE. PROGRESSING TOWARDS GOALS. [facility] PLANS TO DC ON 07/28. CALL LIGHT AND PERSONAL ITEMS WITHIN REACH.
[2020-07-26 19:45] VITALS: BP 115/70
--- NOTE | 2020-07-27 01:36 | NUR ---
PT ASSESSMENT COMPLETED AND VSS. MEDS GIVEN ORDERED AND WELL TOLERATED. TRAMADOL HELPFUL AT HS FOR PAIN. PT JACKY IN THE ROOM AND STEADY. SLEEPING WELL. WILL CONTINUE TO MONITOR FREQUENTLY. LEFT HIP HEALING WITH STERI STRIPS IN PLACE. SLEEPING WELL. WILL CONTINUE TO MONITOR FREQUENTLY.
[2020-07-27 09:50] VITALS: BP 110/67
--- NOTE | 2020-07-27 14:14 | NUR ---
team meeting, reccomendation: was made MOD I. dc 10th vito white with pt. fww already delivered today. she will need transportation that will get her into the home.
--- NOTE | 2020-07-27 16:33 | NUR ---
PT TO DC TO HOME TOMORROW 07/28 NEEDS TRANSPORT TO HOME ARRANGED VAN WITH [facility] FOR 10:00 AM.
--- NOTE | 2020-07-27 17:38 | NUR ---
PT ALERT AND ORIENTED TIMES FOUR. VSS. PT DENEIS PAIN/SOA AT THIS TIME. PT TOLERATES MEDS NAD MEALS. PT WORKED VERY WELL WITH PO/OT TODAY. PLANS FOR PT TO DISCHARGE HOME TOMORROW.
[2020-07-27 19:33] VITALS: BP 122/71
--- NOTE | 2020-07-28 03:17 | NUR ---
assumed care approx 1900 evening 07/27. pt sleeping at change of shift. pt modified indep in her room tolerating well. pt using bsc without difficulty. pt had bm tonight. pt took hs med with yogurt tolerating well. pt appears to be sleeping soundly in between toileting. call light in reach. will continue to monitor.
[2020-07-28 08:00] VITALS: BP 137/69
--- NOTE | 2020-07-28 08:59 | NUR ---
PT ALERT AND ORIENTED TIMES FOUR. PT DENIES PAIN/SOA. PT TOLERATES MEDS AND BREAKFAST THIS MORNING. PT UP TO BSC WITHOUT DIFFICULTIES. PLAN TO DISCHARGE TODAY. WILL CONTINUE TO MONITOR.
[2020-07-28] MEDS ORDERED: LIDOPATCH1 EACH TRANSDERM (09:09)
[2020-07-28] MEDS ORDERED: VITAMIN D325 MC1 PO ×2 (09:09→10:11)
[2020-07-28] MEDS ORDERED: VITAMIN B-12500 MCG PO (09:09)
[2020-07-28] MEDS ORDERED: ASA81BEC PO (10:32)
--- NOTE | 2020-07-29 14:24 | NUR ---
PT DISCHARGED YESTERDAY TO HOME WITH [facility] DC ORDERS/SUMMARY FAXED TODAY ORDERS NOT RECEIVED AT [facility] YESTERDAY THEY WILL ARRANGE VISITS WITH PT.
== END 2020-07-28 10:30 | disposition home health service (06) | DRG 536 ==
PROVIDERS: Nurse Practitioner; Nurse Practitioner Family; ADMIT Physical Medicine & Rehabilitation; ATTEND Physical Medicine & Rehabilitation
DX: S72.002A Fracture of unspecified part of neck of left femur, initial encounter for closed fracture (principal); D62 Acute posthemorrhagic anemia; E87.1 Hypo-osmolality and hyponatremia; E46 Unspecified protein-calorie malnutrition; Z68.1 Body mass index [BMI] 19.9 or less, adult; E87.6 Hypokalemia; W18.39XA Other fall on same level, initial encounter; D72.829 Elevated white blood cell count, unspecified; R53.81 Other malaise; E53.8 Deficiency of other specified B group vitamins; E55.9 Vitamin D deficiency, unspecified; Y93.89 Activity, other specified; Y92.89 Other specified places as the place of occurrence of the external cause; Y99.8 Other external cause status; Z90.49 Acquired absence of other specified parts of digestive tract
CPT/HCPCS: 10112

== ENCOUNTER 2021-08-07 22:06 | Inpatient (IN) | payer OTHER ==
[~2021-08-07] VITALS: Ht 152.4 cm; Wt 28.6 kg
--- NOTE | ~2021-08-07 | EMS ---
[address] [address] EMS Patient Care Report Name: YANETH MCFADDEN Room #: PRE ER M.R.#: [id number] Admission: Attend Phys: Discharge: Date of : 42 Report #: [id number] THIS REPORT FOR: //name// Report Transmitted: 08/07/2021 22:03 EMS Care Summary [place], [place]/[facility] Incident [id number] @ 08/07/2021 21:29 Incident Location [address] [place] [address] Patient YANETH MCFADDEN Female, 81 Years 1940 Patient Address [address] [place] [address] Patient History None Reported, Patient Allergies No known allergies, Patient Medications None Reported, Chief Complaint Syncope, fell and hurt knee Disposition Transported No Lights/[employer] Dispatch Reason Falls Transported To [facility] Narrative Called for a fall. Upon arrival, pt was BAGLEY x 3 lying on her bed. She said she passed out this morning, fell down to the ground and hurt her knee somehow. She has significant swelling to the right knee. She requests transport to [facility] ER for further eval & tx. She was carried to the EMS cot and loaded into [place] [id number] EMS Patient Care Report Name: YANETH MCFADDEN Room #: PRE ER M.R.#: [id number] Admission: Attend Phys: Discharge: Date of : 42 Report #: [id number] the ambulance w/o incident. Vitals obtained. 20g IV SL and D-stick. Vitals repeated. En route: cont to monitor the pt, no significant changes. RR to the ER. Arrived: pt taken to ER #9 and moved to their bed w/o incident. Pt care & report to ER staff. Initial Vitals @21:45P: 108,R: 18,BP: 155/75,Pain: 0/10,GCS: 15,Revised Trauma: 12, @21:54P: 100,R: 18,BP: 153/83,Pain: 0/10,GCS: 15,Glucose: 130,Revised Trauma: 12, Assessments @21:39MENTAL:SKIN:HEENT:LUNG SOUNDS:ABDOMEN:PELVIS//GI:EXTREMITIES:Right Leg: PATRICA,Right Leg: SPR,PULSE:NEURO: Impression Syncope / Fainting Procedures @21:39 ALS Assessment Response: UnchangedSucceeded @21:48 IV Therapy - Saline Lock 8cc (20 ga) Site: Forearm-Left Response: UnchangedSucceeded @22:01 Stretcher Response: Unchanged Timeline 21:27,Call Received 21:,Dispatch Notified 21:29,Dispatched 21:31,En Route 21:38,On Scene 21:39,At Patient 21:39,ALS Assessment,Response: UnchangedSucceeded, 21:45,BP: 155/75 M,PULSE: 108,RR: 18 R,SPO2: Ox,ETCO2: ,BG: ,PAIN: 0,GCS: 15, 21:48,IV Therapy - Saline Lock 8cc 20 ga Site: Forearm-Left,Response: UnchangedSucceeded, 21:49,Depart Scene 21:54,BP: 153/83 M,PULSE: 100,RR: 18 R,SPO2: Ox,ETCO2: ,B,PAIN: 0,GCS: 15, 22:01,Stretcher,Response: Unchanged 22:03,At Destination 22:18,Call Closed Disclaimer v1.1 Copyright 2021 [employer] This EMS Care Summary contains data elements from the applicable legal record (which may be displayed differently). It is designed to provide pertinent [facility] [address] [place] [place] [address] EMS Patient Care Report Name: YANETH MCFADDEN Room #: [facility]..#: [id number] Admission: Attend Phys: Discharge: Date of : 42 Report #: [id number] information for the following purposes: continuity of care, clinical quality, and state data reporting. The complete legal record is available to ED staff and administrators of the receiving hospital in [employer] Patient Tracker. All data is provided "as is."
--- NOTE | ~2021-08-07 | EMS ---
[address] [address] EMS Patient Care Report Name: YANETH MCFADDEN Room #: 440-P ADM IN M.R.#: [id number] Admission: 08/08/21 Attend Phys: Blayne Herndon, Discharge: Date of : 44 Report #: [id number] THIS REPORT FOR: //name// Report Transmitted: 08/10/2021 16:22 EMS Care Summary [place], [place] Incident [id number] @ 08/07/2021 21:29 Incident Location [address] [place] [address], [place] [address] Patient YANETH MCFADDEN Female, 81 Years 1940 Patient Address [address] [place] [address] Patient History None Reported, Patient Allergies No known allergies, Patient Medications None Reported, Chief Complaint Syncope, fell and hurt knee Disposition Transported No Lights/Magness Dispatch Reason Falls Transported To [facility] Narrative Called for a fall. Upon arrival, pt was BAGLEY x 3 lying on her bed. She said she passed out this morning, fell down to the ground and hurt her knee somehow. She has significant swelling to the right knee. She requests transport to [facility] ER for further eval & tx. She was carried to the EMS [place] [address] EMS Patient Care Report Name: YANETH MCFADDEN Room #: 440-P [facility]#: [id number] Admission: 08/08/21 Attend Phys: Blayne Herndon, Discharge: Date of : 44 Report #: [id number] the ambulance w/o incident. Vitals obtained. 20g IV SL and D-stick. Vitals repeated. En route: cont to monitor the pt, no significant changes. RR to the ER. Arrived: pt taken to ER #9 and moved to their bed w/o incident. Pt care & report to ER staff. Initial Vitals @21:45P: 108,R: 18,BP: 155/75,Pain: 0/10,GCS: 15,Revised Trauma: 12, @21:54P: 100,R: 18,BP: 153/83,Pain: 0/10,GCS: 15,Glucose: 130,Revised Trauma: 12, Assessments @21:39MENTAL:SKIN:HEENT:LUNG SOUNDS:ABDOMEN:PELVIS//GI:EXTREMITIES:Right Leg: SPR,Right Leg: PATRICA,PULSE:NEURO: Impression Syncope / Fainting Procedures @21:39 ALS Assessment Response: UnchangedSucceeded @21:48 IV Therapy - Saline Lock 8cc (20 ga) Site: Forearm-Left Response: UnchangedSucceeded @22:01 Stretcher Response: Unchanged Timeline 21:27,Call Received 21:27,Dispatch Notified 21:29,Dispatched 21:31,En Route 21:38,On Scene 21:39,At Patient 21:39,ALS Assessment,Response: UnchangedSucceeded, 21:45,BP: 155/75 M,PULSE: 108,RR: 18 R,SPO2: Ox,ETCO2: ,BG: ,PAIN: 0,GCS: 15, 21:48,IV Therapy - Saline Lock 8cc 20 ga Site: Forearm-Left,Response: UnchangedSucceeded, 21:49,Depart Scene 21:54,BP: 153/83 M,PULSE: 100,RR: 18 R,SPO2: Ox,ETCO2: ,B,PAIN: 0,GCS: 15, 22:01,Stretcher,Response: Unchanged 22:03,At Destination 22:18,Call Closed Disclaimer v1.1 Copyright 2021 [employer] This EMS Care Summary contains data elements from the applicable legal record (which may be displayed differently). It is designed to provide pertinent [address] [place] [address] EMS Patient Care Report Name: YANETH MCFADDEN Suzan Room #: 440-P ADM IN M.R.#: [id number] Admission: 08/08/21 Attend Phys: Blayne Herndon, Discharge: Date of : 44 Report #: [id number] information for the following purposes: continuity of care, clinical quality, and state data reporting. The complete legal record is available to ED staff and administrators of the receiving hospital in [employer]'s Patient Tracker. All data is provided "as is."
[~2021-08-07 22:06] MED LIST changes: +ASA81BEC PO; +ENOXAPARIN40 MG/0.1 SUBQ; +LIDOPATCH1 EACH TRANSDERM; +PEPCID20 MG PO; +TYLENOL325 MG PO; +VITAMIN B-12500 MCG PO; +VITAMIN D325 MC1 PO
[2021-08-07 22:08] VITALS: BP 124/70
[2021-08-07 22:41] LABS: ABSOLUTE NEUTROPHILS 6.3 thou/uL (1.4-8.2); BASOPHILS 0.4 % (0.0-2.0); EOSINOPHILS 0.5 % (0.0-3.0); HEMATOCRIT 26.3 % (37.0-47.0); HEMOGLOBIN 8.5 gm/dL (12.0-15.0); LYMPHOCYTES 7.4 % (24.0-44.0); MCH 28.8 pg (26.0-34.0); MCHC 32.5 g/dL (28.0-37.0); MCV 88.6 fL (80.0-100.0); MONOCYTES 11.7 % (1.0-8.0); PLATELET COUNT 309 thou/uL (150-400); RBC 2.96 mil/uL (4.20-5.00); RDW 13.4 % (10.5-14.5); WBC 7.9 thou/uL (4.0-11.0)
[2021-08-07 22:53] LABS: CALCIUM 9.2 mg/dL (8.5-10.1); CREATININE 0.6 mg/dL (0.6-1.0); POTASSIUM 4.3 mmol/L (3.5-5.1)
[2021-08-08 00:50] VITALS: BP 152/65
--- NOTE | 2021-08-08 07:18 | NUR ---
Pt report received from KACEY Valenzuela
--- NOTE | 2021-08-08 07:41 | EKG ---
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
[2021-08-08 09:35] VITALS: BP 120/63
--- NOTE | 2021-08-08 15:11 | NUR ---
Pt refusing knee brace until "seen by ". Pt also requesting food, NPO order in place, pt educated. Provider paged
[2021-08-08 17:43] VITALS: BP 126/61
[2021-08-08 18:00] VITALS: BP 122/53
--- NOTE | 2021-08-08 18:20 | NUR ---
Patient arrived to the floor at 181. alert and oriented x4, vital sign stable. gave patient a turkey sandwich, tell patient to be nothing by mouth in case if the orthopedic will do surgery tommorow. pain level of 7. Patient stated that is ok if she is not moving. 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 Call light within reach, will continous monitoring.
[2021-08-08 22:50] VITALS: BP 106/57
--- NOTE | 2021-08-09 04:05 | NUR ---
ADMISSION COMPLETED. PT IS ALERT AND ORIENTED.RLE BRACE IN PLACE.DENIES PAIN. IVF INFUSING. NPO AFTER MIDNOC.
--- NOTE | 2021-08-09 04:06 | NUR ---
PT ORDER TO BE TELEMETRY MONITORED DUE TO SYNCOPE REPORTS. TELE BOX IN ROOM 443 NOT READING AT THE DESK. [employer] NOTIFIED PLUS RESEARCH PROGRAM ASSISTANT. PT MOVED TO ROOM 440 AND SAME PROBLEM EXPERIENCED.TALKED TO [employer] AND THEY WILL BE HERE IN THE MORNING TO FIX PROBLEM.
[2021-08-09 07:39] VITALS: BP 97/56
[2021-08-09 10:50] VITALS: BP 113/57
[2021-08-09 16:00] VITALS: BP 114/57
--- NOTE | 2021-08-09 16:01 | NUR ---
Patient admits with syncople episode at home. She has tibia fx with no planned operation. Patient reports she lives alone. She has neighbors who are supportive but they have families. 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 She reports being in [facility] rehab in past. She states she will need help at home. Reviewed home health care vs private duty services. discussed therapy evals in process. Patient has limited support and [facility]. Plan to obtain private duty information for her. [facility] following.
--- NOTE | 2021-08-09 17:58 | NUR ---
Patient is alert and oriented. Patient voices pain but refuses any pain medication. Patient actually expressed not wanting to take any medication. Patient has an upper extremity immobilizer on R leg; PT adjusted the brace so it fits better. Patient used bedpan & had a BM; vegatarian diet. DCd IV; provider ok with it out. Calvert in place. Denies further needs.
[2021-08-09 20:55] VITALS: BP 114/64
--- NOTE | 2021-08-10 05:05 | NUR ---
ASSUMEDN PT CARE THIS PM. PT IS ALERT AND ORIENTED X4. PT HAS IMMOBILIZER TO RLE. PT C/O PAIN BUT REFUSED PAIN MEDS AND EVERY SCHEDULED MEDS.PT PREFERS ICE PACK FOR PAIN MANAGEMENT. PT HAS PATEL IN PLACE. PT IS ON RA. NO VISIBLE SIGN OF DISTRESS NOTED. FALL PRECAUTIONS IN PLACE. WILL CONTINUE TO MONITOR.
[2021-08-10 07:12] VITALS: BP 123/65
[2021-08-10 11:38] LABS: HEMATOCRIT 25.7 % (37.0-47.0); HEMOGLOBIN 8.3 gm/dL (12.0-15.0); MCH 28.6 pg (26.0-34.0); MCHC 32.3 g/dL (28.0-37.0); MCV 88.6 fL (80.0-100.0); RBC 2.9 mil/uL (4.20-5.00); RDW 13.3 % (10.5-14.5); WBC 5.1 thou/uL (4.0-11.0)
[2021-08-10 11:51] LABS: CALCIUM 8.5 mg/dL (8.5-10.1); CREATININE 0.5 mg/dL (0.6-1.0); POTASSIUM 3.6 mmol/L (3.5-5.1)
--- NOTE | 2021-08-10 14:00 | NUR ---
Gave patient information on private duty. Patient interested in acute [facility] rehab. She did not want custodial list she wants acute rehab [facility]. [facility] evaled and can accept. Patient reports when she returns home she can hire private duty if needed. She has resources for payment. Updated phys [facility] can accept.
--- NOTE | 2021-08-10 14:24 | NUR ---
Patient is A&Ox4 and makes needs known. Patient still refusing all medications. No IV access. Pain managed with Heat/Cold therapy. Worked with PT/OT. Patient is to be admitted to Rehab/[facility] later this day.
--- NOTE | 2021-08-10 19:21 | NUR ---
Patient is approved to go to [facility] rehab; anticipated transfer tomorrow 08/10/21.
[2021-08-10 20:08] VITALS: BP 107/66
--- NOTE | 2021-08-11 06:02 | NUR ---
ASSUMED PT CARE THIS PM. PT IS ALERT AND ORIENTED X4. PT REFUSED MEDS. PT DOES NOT HAVE PIV ACCESS. PT HAS CONCERNS ABOUT WHEN SHE WILL BE TRANSFERRED TO . PT HAS IMMOBILIZER TO [facility]. PT HAS FOELY IN PLACE. PT IS ON RA. NO VISIBLE SIGN OF DISTRESS NOTED. FALL PRECAUTIONS IN PLACE. WILL CONTINUE TO MONITOR.
[2021-08-11 07:55] VITALS: BP 108/59
[2021-08-11] MEDS ORDERED: ELIQUIS2.5 MG PO (09:53)
[2021-08-11] MEDS ORDERED: HYDROCODON-ACE1 EAC7 PO (09:53)
[2021-08-11] MEDS ORDERED: STIMULANT LAXA1 EACH PO (09:54)
[2021-08-11] MEDS ORDERED: FERREX 150 PLU1 EAC1 PO (09:57)
[2021-08-11 12:25] VITALS: BP 91/55
--- NOTE | 2021-08-11 12:27 | NUR ---
Patient to discharge to [facility] acute rehab today. Plan dc home post 5n with possible home health care and private duty.
[2021-08-11 15:38] VITALS: BP 100/54
== END 2021-08-11 18:15 | DRG 562 ==
LOC: ER 22:06 → 4S 08-08 00:19 → EROBS 08-08 00:19 → 4S 08-08 17:45
PROVIDERS: Hospitalist; Student in an Organized Health Care Education/Training Program; Surgery; ADMIT Surgery; ATTEND Surgery
PROC: 2W3QX3Z Immobilization of Right Lower Leg using Brace (ICD-10-PCS; principal; 2021-08-09)
DX: S82.141A Displaced bicondylar fracture of right tibia, initial encounter for closed fracture (principal); E43 Unspecified severe protein-calorie malnutrition; Z68.1 Body mass index [BMI] 19.9 or less, adult; Z96.611 Presence of right artificial shoulder joint; Z96.642 Presence of left artificial hip joint; Z60.2 Problems related to living alone; R29.6 Repeated falls; M81.0 Age-related osteoporosis without current pathological fracture; E03.9 Hypothyroidism, unspecified; W17.89XA Other fall from one level to another, initial encounter; D64.9 Anemia, unspecified; R26.9 Unspecified abnormalities of gait and mobility; R55 Syncope and collapse; Z20.822 Contact with and (suspected) exposure to COVID-19; Z90.49 Acquired absence of other specified parts of digestive tract; Z79.899 Other long term (current) drug therapy; Z79.82 Long term (current) use of aspirin; Y93.89 Activity, other specified; Y92.008 Other place in unspecified non-institutional (private) residence as the place of occurrence of the external cause; Y99.8 Other external cause status; Z91.81 History of falling; D50.9 Iron deficiency anemia, unspecified
CPT/HCPCS: 10100

== ENCOUNTER 2021-08-10 16:31 | Inpatient (IN) | payer OTHER ==
[~2021-08-10] VITALS: Ht 144.8 cm; Wt 29.1 kg
[2021-08-11] MEDS ORDERED: HYDROCODON-ACE1 EAC7 PO (09:53)
[2021-08-11] MEDS ORDERED: ELIQUIS2.5 MG PO (09:53)
[2021-08-11] MEDS ORDERED: STIMULANT LAXA1 EACH PO (09:54)
[2021-08-11] MEDS ORDERED: FERREX 150 PLU1 EAC1 PO (09:57)
--- NOTE | 2021-08-11 18:20 | NUR ---
PT ARRIVED TO UNIT VIA BED. PT LIVES ALONE. PT HAD FELL AT HOME AND BROKE RT TIBIAL AND IS TTWB. PT HAS PATEL TO DD. PT WAS ABLE TO SIGN ADMIT PAPERS AND VS TAKEN.
[2021-08-11 18:35] VITALS: BP 93/57
--- NOTE | 2021-08-12 00:11 | NUR ---
PT ADMITTED TO ROOM 506 AT 1825 VIA BED. PT ALERT AND ORIENTED X 4. ADMISSION HISTORY AND ASSESSMENT COMPLETED. ORIENTED TO ROOM AND USE OF CALL LIGHT. UNIT HANDBOOK GIVEN TO PT. FALL PRECAUTIONS EXPLAINED TO PT. PT REFUSED HS MEDS AND SCD'S. C/O PAIN IN RIGHT LE WITH MOVEMENT. REFUSES TO BE TURNED. PATEL PATENT DRAINING CLEAR YELLOW URINE. RIGHT KNEE IMMOBILIZER ON. BED ALARM ON FOR SAFETY. PT APPEARS TO BE SLEEPING ON HOURLY ROUNDS.
[2021-08-12 05:44] LABS: CALCIUM 8.6 mg/dL (8.5-10.1); CREATININE 0.5 mg/dL (0.6-1.0); POTASSIUM 4.6 mmol/L (3.5-5.1)
[2021-08-12 06:15] LABS: ABSOLUTE NEUTROPHILS 4.3 thou/uL (1.4-8.2); BASOPHILS 0.5 % (0.0-2.0); EOSINOPHILS 4.3 % (0.0-3.0); HEMATOCRIT 26.9 % (37.0-47.0); HEMOGLOBIN 8.8 gm/dL (12.0-15.0); MCHC 32.8 g/dL (28.0-37.0); MCV 88.4 fL (80.0-100.0); MONOCYTES 10.8 % (1.0-8.0); PLATELET COUNT 289 thou/uL (150-400); POLYS 76.4 % (36.0-66.0); RBC 3.04 mil/uL (4.20-5.00); RDW 13.6 % (10.5-14.5); WBC 5.6 thou/uL (4.0-11.0)
[2021-08-12 07:45] VITALS: BP 93/57
[2021-08-12 16:19] VITALS: BP 93/57
--- NOTE | 2021-08-12 16:20 | NUR ---
Case opened to follow for dc planning. Pt admitted to acute rehab yesterday. She is known to the rehab team from a stay on [facility] a year ago. She lives alone in a ranch style home with 1-2 steps to enter. She has a FWW from last year but has been indep inside the home with both gait and adl's. She relies on delievery orders for groceries and meals. She has a supportive friend/neighbor Reina who might be able to pick her up at dc and check on her. She is open to again and used [facility] last year. She is open to private duty and has funds to pay if needed. [employer] liason notified to visit with pt next week. Will offer private duty resources if needed. Care team mtg on to determine los. The pt fell at home after a syncopal episode and is now TTWB with a hinged brace for a tib plateau fx. The pt is familiar with our rehab program. Will follow.
[2021-08-12 20:08] VITALS: BP 120/65
--- NOTE | 2021-08-13 05:23 | NUR ---
ASSUMED CARE AT 1915 OF 08/12. PATIENT IS A&OX4, ABLE TO MAKE NEEDS KNOWN. DENIES PAIN WHEN RLE REMAIN IMMOBILOZED, REPORTS PAIN IS PRESENT WITH ANY MOVEMENT. PATIENT REPORTED THAT THE [place] PATCH WAS EFFECTIVE IN THE DAY BECAUSE HER PAIN WAS TOLERABLE DURING THERAPY. PATIENT REFUSED TO BE TURN. RLE ELEVATED IN BED. ASSISTED WITH BED SHETTY USAGE OVERNIGHT. SLEEPING DURING ROUNDS. FALL PRECAUTIONS IN PLACE, CALL LIGHT WITHIN REACH. WILL CONTINUE TO MONITOR.
[2021-08-13 07:20] VITALS: BP 94/56
[2021-08-13 09:45] VITALS: BP 94/56
--- NOTE | 2021-08-13 15:20 | NUR ---
PT A&OX4. PT DOES NT WANT TO STAY UP IN CHIR BETWEEN MEALS. PT REQUESTS TO GO BACK TO BED AFTER MEALS ARE FINISHED. PT UP WITH MAX ASSIST TO PIVOT TRANSFER TO OR BSC. VS CHARTED. PT REFUSES ALL MEDICATIONS. WILL CONTINUE TO MONITOR.
--- NOTE | 2021-08-14 01:24 | NUR ---
assumed care approx 0 evening 08/13. pt lying in bed with head of bed slightly elevated. pt alert and oriented x4, calm and cooperative. pt with right leg brace/immobilizer in place. pt denies pain. pt refusing any po meds. pt appears to be sleeping soundly. bed alarm on and call light in reach. will continue to monitor.
[2021-08-14 08:00] VITALS: BP 95/54
--- NOTE | 2021-08-14 09:21 | NUR ---
PT IS TTWB TO RLE WITH LEG BRACE ON. PT DIDN'T WANT TO TAKE PO MEDS. PT DENIES ANY PAIN UNLESS SHE IS MOVING. PT DOESN'T LIKE ICE IN WATER. PT DID EAT SOME EGGS THIS AM AND JUICE.
[2021-08-14 19:40] VITALS: BP 105/58
--- NOTE | 2021-08-15 02:31 | NUR ---
assumed care approx 1900 evening 08/14. pt lying in bed resting at change of shift. orozco to dd with clear, light colored yellow/green urine in bag. large amt urine in bag as pt drinks water frequently. pt refusing any meds. brace to right leg elevated on pillow. pt assisted with bedpan tonight with no results. pt sleeping off and on. bed alarm on and call light in reach. will continue to monitor.
[2021-08-15 07:33] VITALS: BP 100/54
[2021-08-15 09:30] VITALS: BP 100/54
[2021-08-15 20:04] VITALS: BP 103/57
--- NOTE | 2021-08-15 21:20 | NUR ---
PT ALERT AND ORIENTED X 4. PATEL PATENT DRAINING CLEAR YELLOW URINE. PT REFUSED HS MEDS. PT DENIES PAIN OR DISCOMFORT. BED ALARM ON FOR SAFETY. PT APPEARS TO BE SLEEPING ON HOURLY ROUNDS.
== END 2021-08-16 | disposition home health service (06) | DRG 562 ==
PROVIDERS: ADMIT Physical Medicine & Rehabilitation; ATTEND Physical Medicine & Rehabilitation
DX: S82.141A Displaced bicondylar fracture of right tibia, initial encounter for closed fracture (principal); E43 Unspecified severe protein-calorie malnutrition; Z68.1 Body mass index [BMI] 19.9 or less, adult; D62 Acute posthemorrhagic anemia; W18.30XA Fall on same level, unspecified, initial encounter; D63.8 Anemia in other chronic diseases classified elsewhere; F32.A Depression, unspecified; R53.81 Other malaise; R26.9 Unspecified abnormalities of gait and mobility; K59.09 Other constipation; Z96.642 Presence of left artificial hip joint; M19.90 Unspecified osteoarthritis, unspecified site; G31.84 Mild cognitive impairment of uncertain or unknown etiology; E03.9 Hypothyroidism, unspecified; Y93.89 Activity, other specified; Y92.89 Other specified places as the place of occurrence of the external cause; Y99.8 Other external cause status; Z90.49 Acquired absence of other specified parts of digestive tract; Z79.899 Other long term (current) drug therapy; Z79.82 Long term (current) use of aspirin; Z79.01 Long term (current) use of anticoagulants
CPT/HCPCS: 10112